=== PATIENT | female | born 2000 | race African-American/Black ===

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

== ENCOUNTER 2019-09-28 12:22 | Emergency (ER) | payer MEDICAID ==
[~2019-09-28] VITALS: Ht 165.1 cm; Wt 100.0 kg
[2019-09-28 13:05] VITALS: BP 123/86
[2019-09-28] MEDS ORDERED: ACETAMINOPHEN 325MG TABLET PO ONE (13:30)
== END 2019-09-28 15:29 | disposition home or self-care (01) ==
LOC: ER 12:35
DX: J01.90 Acute sinusitis, unspecified (principal)
CPT/HCPCS: 99282

== ENCOUNTER 2021-05-01 00:03 | Emergency (ER) | payer MEDICAID ==
[~2021-05-01] VITALS: Ht 160 cm; Wt 68.0 kg
[2021-05-01] MEDS ORDERED: IBUPROFEN 600MG TABLET PO STA (01:00)
[2021-05-01] MEDS ORDERED: IBUP-2029 PO (03:17)
[2021-05-01 03:38] VITALS: BP 136/82
== END 2021-05-01 03:40 | disposition home or self-care (01) ==
LOC: ER 00:03
DX: M77.32 Calcaneal spur, left foot (principal); M72.2 Plantar fascial fibromatosis
CPT/HCPCS: 73610; 99283; Z7610

== ENCOUNTER 2022-07-29 21:32 | Emergency (ER) | payer MEDICAID, OTHER ==
[~2022-07-29] VITALS: Ht 157.5 cm; Wt 84.0 kg
[~2022-07-29 21:32] MED LIST: IBUP-2029 PO
[2022-07-29 21:42] VITALS: BP 105/45
[2022-07-29 22:54] LABS: BASOPHILS % 0.4 % (0.0-2.0); EOSINOPHILS % 0.8 % (0.0-5.0); HEMATOCRIT. 37.6 % (36.0-48.0); HEMOGLOBIN. 12.1 g/dL (12.0-16.0); LYMPHOCYTES % 38.6 % (20.0-50.0); MEAN CORPUSCULAR HEMOGLOBIN 23.8 pg (28.0-32.0); MEAN PLATELET VOLUME 7.7 fl (7.4-10.4); MONOCYTES % 5.5 % (2.0-8.0); NEUTROPHILS % 54.7 % (40.0-76.0); PLATELET 325 x1000/uL (130-400); RED BLOOD CELL COUNT 5.09 mill/uL (4.2-5.4); RED CELL DISTRIBUTION WIDTH 17.9 % (11.6-14.6)
[2022-07-29 23:03] LABS: CHLORIDE 105 mEq/L (98-107)
[2022-07-30] MEDS ORDERED: IMOD MT (00:16)
[2022-07-30] MEDS ORDERED: ONDA4TAB50 MT (00:16)
== END 2022-07-30 00:30 | disposition home or self-care (01) ==
LOC: ER 21:32
DX: R19.7 Diarrhea, unspecified (principal)
CPT/HCPCS: 36415; 80053; 85025; 99283

== ENCOUNTER 2022-12-28 21:53 | Emergency (ER) | payer MEDICAID ==
[~2022-12-28] VITALS: Ht 157.5 cm; Wt 86.0 kg
[~2022-12-28 21:53] MED LIST changes: +IMOD MT; +ONDA4TAB50 MT
[2022-12-28 22:22] VITALS: BP 129/93; PULSE 98; RESP 16; TEMP 98.3
== END 2022-12-29 00:40 | disposition left against medical advice (07) ==
LOC: ER 21:53
DX: R10.9 Unspecified abdominal pain (principal); Z53.21 Procedure and treatment not carried out due to patient leaving prior to being seen by health care provider
CPT/HCPCS: 99281

== ENCOUNTER 2023-02-04 15:25 | Emergency (ER) | payer MEDICAID, OTHER ==
[~2023-02-04] VITALS: Ht 162.6 cm; Wt 72.0 kg
[2023-02-04 15:39] VITALS: O2SAT 100
[2023-02-04 17:40] VITALS: BP 115/87; PULSE 65; RESP 16; TEMP 98.1
[2023-02-04] MEDS ORDERED: GUAIFENESIN 600MG ER TABLET PO SCH (21:00)
== END 2023-02-04 17:50 | disposition home or self-care (01) ==
LOC: ER 15:25
DX: B34.9 Viral infection, unspecified (principal); Z32.01 Encounter for pregnancy test, result positive
CPT/HCPCS: 81025; 99282